=== PATIENT | female | born 1945 | race Caucasian/White ===

== ENCOUNTER → 2016-10-30 | Day surgery (SDC) | payer MEDICARE, OTHER ==
[~2016-10-30] MED LIST: 0.9 % SODIUM CHLORIDE 50 ML VIAL. IJ ONE; BACITRACIN 50,000 UNIT VIAL. ONE; BUPIVACAINE MPF 0.5% 30 ML VIAL. ONE; EPHEDRINE ONE; IV RINGERS SOLUTION,LACTATED 1,000 ML IV ONE; LIDOCAINE 1% PF 30 ML VIAL. ONE; LIDOCAINE 2% 100 MG/5 ML DISP.SYRIN. ONE; PHENYLEPHRINE 10 MG/ML VIAL. IV ONE; PROPOFOL 60 ML IV ONE; SUCCINYLCHOLINE 200 MG/10 ML VIAL. ONE; fentaNYL PF 100 MCG/2 ML VIAL ONE; oxyCODONE/APAP 5/325 1 TAB TABLET ONE
== END | disposition home or self-care (01) ==
LOC: SURG 12:19
PROVIDERS: ATTEND Anesthesiology Pain Medicine
DX: M54.16 Radiculopathy, lumbar region (principal); E78.5 Hyperlipidemia, unspecified; M19.91 Primary osteoarthritis, unspecified site
CPT/HCPCS: 63685; J0330; J0690; J2001; J2704; J3010; J3490; J7120; L8679

== ENCOUNTER → 2017-01-15 | Outpatient (CLI) | payer MEDICARE, OTHER | END | disposition home or self-care (01) | LOC: SURG 11:56 | PROVIDERS: ATTEND Anesthesiology Pain Medicine | DX: M54.17 Radiculopathy, lumbosacral region (principal); M48.00 Spinal stenosis, site unspecified; M46.1 Sacroiliitis, not elsewhere classified | CPT/HCPCS: 99213 ==